=== PATIENT | female | born 1995 | race Caucasian/White ===

== ENCOUNTER 2021-04-29 16:18 | Emergency (ER) | payer OTHER ==
[~2021-04-29] VITALS: Ht 162.6 cm; Wt 48.0 kg
[2021-04-29 17:29] LABS: BASOPHILS % (AUTO) 0.4 % (0-1); EOSINOPHILS # (AUTO) 0.1 X10'3 (0-0.9); EOSINOPHILS % (AUTO) 0.9 % (0-6); HEMATOCRIT 41.1 % (35.0-45.0); HEMOGLOBIN 13.9 g/dl (12.0-16.0); LYMPHOCYTES # (AUTO) 1.3 X10'3 (1.1-4.8); LYMPHOCYTES % (AUTO) 23.1 % (21-51); MEAN CORPUSCULAR HEMOGLOBIN 31.8 PG (27.0-31.0); MEAN CORPUSCULAR HGB CONC 33.8 g/dL (33.0-36.5); MEAN CORPUSCULAR VOLUME 93.9 FL (78-98); MEAN PLATELET VOLUME 8.8 FL (7.4-10.4); MONOCYTES # (AUTO) 0.3 X10'3 (0-0.9); MONOCYTES % (AUTO) 5.3 % (2-12); NEUTROPHILS % (AUTO) 70.3 % (42-75); PLATELET COUNT 230 X10'3 (140-440); RED BLOOD COUNT 4.38 X10'6 (4.20-5.60); RED CELL DISTRIBUTION WIDTH 14.6 % (11.5-14.5); WHITE BLOOD COUNT 5.7 X10'3 (4.5-11.0)
[2021-04-29 17:40] LABS: ALANINE AMINOTRANSFERASE 24 U/L (12-78); ALBUMIN 4.1 G/DL (3.4-5.0); ALBUMIN/GLOBULIN RATIO 1.2 (1.1-1.5); ALKALINE PHOSPHATASE 39 IU/L (46-116); ANION GAP 9 (8-16); ASPARTATE AMINO TRANSFERASE 21 U/L (10-37); BILIRUBIN,TOTAL 0.5 MG/DL (0.1-1.0); BLOOD UREA NITROGEN 7 MG/DL (7-18); BUN/CREATININE RATIO 8.6 (6.6-38.0); CALCIUM 8.2 MG/DL (8.5-10.1); CHLORIDE 104 MMOL/L (99-107); CREATININE 0.81 MG/DL (0.40-0.90); GLUCOSE 85 MG/DL (70-104); POTASSIUM 3.7 MMOL/L (3.5-5.1); SODIUM 143 MMOL/L (135-145); TOTAL CARBON DIOXIDE 29.7 MMOL/L (24-32); TOTAL PROTEIN 7.6 G/DL (6.4-8.2); eGFR 85 ML/MIN
[2021-04-29 17:48] LABS: MAGNESIUM 2.1 MG/DL (1.5-2.4); PHOSPHORUS 4.3 MG/DL (2.3-4.5)
[2021-04-29 20:14] LABS: CLARITY,URINE CLOUDY (Clear); COLOR,URINE YELLOW (Yellow); GLUCOSE, URINE NEGATIVE (Neg); KETONES,URINE NEGATIVE (Neg); LEUKOCYTE ESTERASE ,URINE MODERATE (Neg); NITRITES, URINE NEGATIVE (Neg); OCCULT BLOOD,URINE LARGE (Neg); PH,URINE 6.5 (4.8-8.0); PROTEIN,URINE 30 mg/dl (Neg)
[2021-04-29 20:24] LABS: UA COLLECTION TYPE CLN CATCH MIDSTREAM
[2021-04-29 20:25] LABS: URINE AMPHETAMINE SCREEN NEGATIVE (Neg); URINE BARBITUATE SCREEN NEGATIVE (Neg); URINE BENZODIAZEPINES SCREEN NEGATIVE (Neg); URINE CANNABINOID SCREEN NEGATIVE (Neg); URINE COCAINE SCREEN NEGATIVE (Neg); URINE METHADONE SCREEN NEGATIVE (Neg); URINE OPIATE SCREEN NEGATIVE (Neg); URINE PHENCYCLIDINE SCREEN NEGATIVE (Neg)
[2021-04-29 20:26] LABS: BACTERIA,URINE 3+ /HPF (Neg); WBC,URINE TNTC /HPF (0-4)
[2021-04-29 20:27] LABS: MUCUS STRANDS FEW /LPF (Neg); SQUAMOUS EPITHELIAL CELL,UR MODERATE /LPF (FEW)
[2021-04-29] MEDS ORDERED: NITR100C6 PO (20:54)
[2021-04-29 21:17] VITALS: BP 102/65
== END 2021-04-29 21:19 | disposition home or self-care (01) ==
LOC: ER 16:19
DX: N39.0 Urinary tract infection, site not specified (principal); F50.9 Eating disorder, unspecified
CPT/HCPCS: 36415; 80053; 80305; 81001; 83735; 84100; 84439; 84443; 85025; 85651; 93005; 99284

== ENCOUNTER 2024-09-19 12:25 | Emergency (ER) | payer MEDICAID, OTHER ==
[~2024-09-19] VITALS: Ht 162.6 cm; Wt 56.0 kg
[~2024-09-19 12:25] MED LIST: NITR100C6 PO
[2024-09-19 12:41] VITALS: TEMP 98
[2024-09-19 13:11] LABS: BASOPHILS % (AUTO) 0.5 % (0-1); EOSINOPHILS # (AUTO) 0.1 X10'3 (0-0.9); EOSINOPHILS % (AUTO) 1.2 % (0-6); HEMATOCRIT 41.3 % (35.0-45.0); HEMOGLOBIN 14.2 g/dl (12.0-16.0); LYMPHOCYTES # (AUTO) 1.9 X10'3 (1.1-4.8); LYMPHOCYTES % (AUTO) 34.4 % (21-51); MEAN CORPUSCULAR HGB CONC 34.4 g/dL (33.0-36.5); MEAN CORPUSCULAR VOLUME 95.9 FL (78-98); MEAN PLATELET VOLUME 8.7 FL (7.4-10.4); MONOCYTES # (AUTO) 0.4 X10'3 (0-0.9); MONOCYTES % (AUTO) 6.6 % (2-12); NEUTROPHILS # (AUTO) 3.1 X10'3 (1.8-7.7); NEUTROPHILS % (AUTO) 57.3 % (42-75); PLATELET COUNT 232 X10'3 (140-440); RED CELL DISTRIBUTION WIDTH 13.1 % (11.5-14.5); WHITE BLOOD COUNT 5.4 X10'3 (4.5-11.0)
[2024-09-19 13:15] LABS: BILIRUBIN,URINE NEGATIVE (Neg); CLARITY,URINE CLEAR (Clear); COLOR,URINE YELLOW (Yellow); GLUCOSE, URINE NEGATIVE (Neg); KETONES,URINE NEGATIVE (Neg); LEUKOCYTE ESTERASE ,URINE MODERATE (Neg); NITRITES, URINE NEGATIVE (Neg); OCCULT BLOOD,URINE NEGATIVE (Neg); PH,URINE 6.5 (4.8-8.0); PROTEIN,URINE NEGATIVE (Neg); UROBILINOGEN,URINE 0.2 E.U/dL (0.2-1.0)
[2024-09-19 13:16] LABS: URINE HCG NEGATIVE (NEG)
[2024-09-19 13:23] LABS: UA COLLECTION TYPE CLN CATCH MIDSTREAM
[2024-09-19 13:24] LABS: ALANINE AMINOTRANSFERASE 12 U/L (12-78); ALBUMIN 4.2 G/DL (3.4-5.0); ALBUMIN/GLOBULIN RATIO 1.1 (1.1-1.5); ALKALINE PHOSPHATASE 77 IU/L (46-116); ANION GAP 6 (8-16); ASPARTATE AMINO TRANSFERASE 19 U/L (10-37); BILIRUBIN,TOTAL 0.4 MG/DL (0.1-1.0); BLOOD UREA NITROGEN 15 MG/DL (7-18); BUN/CREATININE RATIO 18.5 (10.0-20.0); CALCIUM 9.1 MG/DL (8.5-10.1); CHLORIDE 105 MMOL/L (99-107); CREATININE 0.81 MG/DL (0.40-0.90); GLUCOSE 94 MG/DL (70-104); LIPASE 73 U/L (16-77); POTASSIUM 3.9 MMOL/L (3.5-5.1); SODIUM 140 MMOL/L (135-145); TOTAL CARBON DIOXIDE 28.7 MMOL/L (24-32); TOTAL PROTEIN 7.9 G/DL (6.4-8.2); eCRCL 88 ML/MIN; eGFR 84 ML/MIN
[2024-09-19 13:29] LABS: BACTERIA,URINE FEW /HPF (Neg); RBC,URINE 0-2 /HPF (0-2); SQUAMOUS EPITHELIAL CELL,UR MODERATE /LPF (FEW)
[2024-09-19] MEDS ORDERED: NITR100C6 PO (15:31)
[2024-09-19 15:42] VITALS: BP 114/78; PULSE 68; RESP 16; O2SAT 98
== END 2024-09-19 15:44 | disposition home or self-care (01) ==
LOC: ER 12:26
DX: N39.0 Urinary tract infection, site not specified (principal); R10.2 Pelvic and perineal pain; Z79.899 Other long term (current) drug therapy
CPT/HCPCS: 36415; 76856; 80053; 81001; 81025; 83690; 85025; 87088; 93976; 99284

== ENCOUNTER 2025-06-15 18:18 | Emergency (ER) | payer MEDICAID ==
[~2025-06-15] VITALS: Ht 162.6 cm; Wt 55.9 kg
[2025-06-15 18:40] VITALS: BP 85/49; PULSE 75; RESP 20; TEMP 98.9; O2SAT 99
[2025-06-15 19:00] LABS: MEAN PLATELET VOLUME 8.6 FL (7.4-10.4); RED CELL DISTRIBUTION WIDTH 13.5 % (11.5-14.5)
[2025-06-15 19:06] LABS: LEUKOCYTE ESTERASE ,URINE NEGATIVE (Neg); NITRITES, URINE NEGATIVE (Neg); OCCULT BLOOD,URINE MODERATE (Neg)
[2025-06-15 19:13] LABS: UA COLLECTION TYPE NON-SPECIFIED; URINE HCG NEGATIVE (NEG)
[2025-06-15 19:15] LABS: MUCUS STRANDS FEW /LPF (Neg); SQUAMOUS EPITHELIAL CELL,UR MODERATE /LPF (FEW)
[2025-06-15 19:28] LABS: CREATININE 0.80 MG/DL (0.40-0.90); TOTAL CARBON DIOXIDE 25.8 MMOL/L (24-32); eCRCL 89 ML/MIN; eGFR 84 ML/MIN
--- NOTE | 2025-06-15 22:29 | RADIOLOGY REPORT ---
CLINICAL HISTORY: Abdominal pain TECHNIQUE: CT of the chest, abdomen, and pelvis was performed without IV contrast. Coronal and sagittal reformatted images were performed for better depression of the anatomy. This exam was performed according to our departmental dose optimization program. Up-to-date CT equipment and radiation dose reduction techniques are utilized as appropriate. CTDI 8.7 DLP 552 COMPARISON: None FINDINGS: CHEST: The thoracic aorta is normal in course and caliber. There are no significant atherosclerotic calcifications. The heart is normal in size. No pericardial effusion is seen. No enlarged mediastinal, hilar, or axillary lymph node is present. The central airways are patent. There is no bronchiectasis. There is no suspicious pulmonary nodule or area of consolidation. There is no pleural effusion present. ABDOMEN/PELVIS: The spleen, pancreas, adrenal glands, kidneys, gallbladder, liver, bladder, and uterus are grossly unremarkable. The abdominal aorta is normal in course and caliber. There are no significant atherosclerotic calcifications. There is no free intraperitoneal air or fluid. There is no enlarged abdominal or pelvic lymph node. There is no bowel wall thickening or dilatation. The appendix is not seen with certainty. There is no focal inflammatory process in its expected location. There is a large amount of stool in the colon. BONES: No acute osseous abnormality is evident. IMPRESSION: No acute noncontrast CT abnormality in the chest, abdomen, or pelvis. Constipation.
--- NOTE | 2025-06-15 23:01 | Physician Documentation ---
History of Present Illness ~ Chief Complaint: Urinary Symptoms Stated Complaint: ABD PAIN Time Seen by MD: 20:10 Primary Medical Doctor: Alma Villalobos HPI Patient is a 29-year-old female that presents to the emergency department for evaluation of intermittent abdominal pain times several months. Patient reports that she has had significant abdominal pain manifesting in different regions over the last month or 2. Patient reports that she was seen at [facility] approximately 2 months ago and underwent a thorough workup at that time with no obvious source of her abdominal pain. Patient reports that she has had nausea intermittent vomiting some episodes of diarrhea. Negative for fever chills at this time. Patient reports regular bowel movements some urinary discomfort with a report of malodorous urine. 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 Reports she was seen at another [facility] and seen by another provider that reported grossly elevated ketones and suggested that the patient reports to the emergency department immediately. Patient is a very concerned about this at this time and would like to be evaluated. Medication Reconciliation Allergies: Coded Allergies: No Known Allergies (Unverified , 04/29/21) Scheduled Nitrofurantoin Monohyd/M-Cryst (Macrobid 100 mg Capsule), 1 CAP PO Q12H Nitrofurantoin Monohyd/M-Cryst (Macrobid 100 mg Capsule), 1 CAP PO Q12H Review of Systems ROS As stated above in the HPI, otherwise all systems are reviewed and negative. Physical Exam Vital Signs: Temperature: 98.9, Source: Oral, Heart Rate: 75, Respiratory Rate: 20, BP: 85/49, Pulse Oximetry: 99, Weight: 55.900 Oxygen Flow Rate: 0 Physical Exam VITALS: Reviewed and as above. GENERAL: Alert, no apparent distress. HEENT: Normocephalic, atraumatic, PERRL, EOMI, dry mucosa, no erythema RESPIRATORY: Lungs clear, normal breath sounds, no respiratory distress, no tachypnea noted. CHEST: No accessory muscle use, no retractions CV: Regular rate, rhythm, no edema, no murmur, No: JVD, BP repeated with a SBP of 96 on repeate exam. Patient reports taht she normally has low BP. GI: Soft, mildly tender with palpation, bowels sounds present, no rebound, guarding, or rigidity BACK: No CVA tenderness, or swelling MUSCULOSKELETAL No deformities, no edema SKIN: Warm and dry, no rash NEURO: Oriented x4, No motor or sensory deficit PSYCH: Normal mood and affect, no agitation Progress Results/Orders Results/Orders Orders - JACOB GREEN PRINTING [employer]ATE CLERK Ct Chest Abdomen Pelvis (06/15/25 22:00) Completed Orders - JACOB GREEN [employer]ING [employer]ATE CLERK Hcg, Ur Ql (06/15/25 18:44) Cbc/Diff (06/15/25 18:44) BMP (06/15/25 18:44) Lipase (06/15/25 18:44) CMP (06/15/25 18:44) Ua W/Microscopic, Cult If Ind (06/15/25 18:53) Ct Chest Abdomen Pelvis (06/15/25 22:00) Vital Signs 06/15/25 18:40 Temp 98.9 Pulse 75 Resp 20 B/P (MAP) 85/49 Pulse Ox 99 O2 Flow Rate 0 Laboratory Tests Test 06/15/25 18:53 White Blood Count 4.4 L Red Blood Count 4.33 Hemoglobin 14.1 Hematocrit 41.7 Mean Corpuscular Volume 96.3 Mean Corpuscular Hemoglobin 32.6 H Mean Corpuscular Hemoglobin Concent 33.9 Red Cell Distribution Width 13.5 Platelet Count 192 Mean Platelet Volume 8.6 Neutrophils (%) (Auto) 69.8 Lymphocytes (%) (Auto) 20.7 L Monocytes (%) (Auto) 9.1 Eosinophils (%) (Auto) 0.1 Basophils (%) (Auto) 0.3 Neutrophils # (Auto) 3.1 Lymphocytes # (Auto) 0.9 L Monocytes # (Auto) 0.4 Eosinophils # (Auto) 0.0 Basophils # (Auto) 0.0 CBC Comment Urine Specimen Description Non-specified Urine Color Yellow Urine Clarity Slightly cloudy Urine pH 6.0 Urine Specific Adams 1.020 Urine Protein Negative Urine Glucose (UA) Negative Urine Ketones >=80 Urine Occult Blood Moderate H Urine Nitrite Negative Urine Bilirubin Small Urine Urobilinogen 0.2 Urine Leukocyte Esterase Negative Urine RBC 0-2 Urine WBC 0-4 Urine Squamous Epithelial Cells Moderate Urine Bacteria None seen Urine Mucus Few Urine Culture Indicated Not ind Volume Urine Centrifuged 10 ml Urine HCG, Qualitative Negative Urine Comment Sodium Level 138 Potassium Level 3.8 Chloride Level 102 Carbon Dioxide Level 25.8 Anion Gap 10 Blood Urea Nitrogen 13 Creatinine 0.80 Estimated GFR/1.73 m2 84 BUN/Creatinine Ratio 16.3 Glucose Level 88 Calcium Level 9.1 Total Bilirubin 0.4 Aspartate Amino Transf (AST/SGOT) 31 Alanine Aminotransferase (ALT/SGPT) 34 Alkaline Phosphatase 72 Total Protein 8.4 H Albumin 4.3 Globulin 4.1 Albumin/Globulin Ratio 1.0 L Lipase 44 Chemistry Comments Medical Decision Making Findings Patient presents with lower abdominal pain/pelvic pain. Abdominal exam without peritoneal signs. No evidence of acute abdomen at this time. Well appearing. Patient with pelvic done with no CMT, adnexal tenderness, or vaginal discharge concerning for PID or TOA. Considered ovarian torsion but doubt given history and presentation. Given work up low suspicion for acute hepatobiliary disease (including acute cholecystitis), acute pancreatitis (neg lipase), PUD and gastric perforation, acute infectious processes (pneumonia, hepatitis, pyelonephritis), acute appendicitis, vascular catastrophe, bowel obstruction or viscus perforation, diverticulitis. Presentation not consistent with other acute, emergent causes of abdominal pain at this time. CT performed and consist ent with moderate constipation at this time. Laboratory diagnostics are negative for any obious souce of infection of complication at this time. Urine revealed elevated ketones most likely associated with dehydration or unintentional starvation due to patient being nauseated over the last several days to weeks. 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 Patient reposts that she practices a restricted diet. Discussed with patient the need to increase her fluids possibly introduced MiraLax into her daily regimen over the next couple of weeks until she regulates her bowel movements. Increase her fluids and food and glucose consumption as tolerated making sure to eat a balanced diet. Discussed this patient at length with Dr. Grace. Dr. Grace graciously reviewed patients notes and labs and came to the same conclusion as above listed. Patient will follow up with her primary care provider. Patient will return to the emergency department with any worsening or recurrent symptoms or any additional concerning symptoms that we discussed here today i.e. increased abdominal pain chills fevers,SOB, nausea vomiting no passing of gas no bowel movements increased constipation blood in her urine or bowel or any other concerning symptoms. 06/16/2025: Follow up phone call made at [phone]. Left a message inquiring about patient's condition and asked her to give me a call back if she was not feeling better to discuss next steps if she is interested. Also left a message regarding ketosis in lactating women and additional dietary needs. 06/16/2025: Second phone call attempted at 1999. No answer. Did not leave a message. Urinary Diff Dx:Considerations: Include: AAA, , Aortic dissection, Appendicitis, Bowel obstruction, Cholelithiasis, Choleangitis, DJD, Ectopic , Hepatitis, HNP, Impaction, Intrauterine , Musculoskeletal pain, Ovarian torsion, Pancreatitis, PID, Post-Op complication, Pyelonephritis, Renal failure, Strain, Urinary Obstruction, Urolithiasis, Urinary retention, UTI, Vaginitis, Other Genital Diff Dx:Considerations: Include: -Complete, - Incomplete, -Inevitable, Ablortion-Missed, -Threatened, Abruptio placentae, Bartholin abscess, Bartholin cyst, Blood loss anemia, Constipation, Cervicitis, Dsymenorrhea, Ectopic , Foreign body, Hormonal, Hidradenitis suppurativa, Intrauterine , Menorrhagia, Menometrorrhagia, Menstrual bleeding, Myomatous uterus, Perianal abscess, Physiologic discharge, Pinworms, PID, Placenta previa, , Precipitous Hct, Trauma, UTI, Vaginitis(osis)-Atrophic, Vaginitis, Vaginitis(osis)-Bacterial, Vaginitis(osis)- Candidal, Vaginitis(osis)-Contact, Vaginitis(osis)-Herpes, Vaginitis(osis)- Trich., Other Departure Disposition: 01 HOME / SELF CARE / HOMELESS Impression: Primary Impression: Abdominal pain Additional Impressions: Constipation Nausea Abdominal tenderness Discharge Instructions: Abdominal Pain, Adult, [id number] Additional Instructions: Patient presents with lower abdominal pain/pelvic pain. Abdominal exam without peritoneal signs. No evidence of acute abdomen at this time. Well appearing. Patient with pelvic done with no CMT, adnexal tenderness, or vaginal discharge concerning for PID or TOA. Considered ovarian torsion but doubt given history and presentation. Given work up low suspicion for acute hepatobiliary disease (including acute cholecystitis), acute pancreatitis (neg lipase), PUD and gastric perforation, acute infectious processes (pneumonia, hepatitis, pyelonephritis), acute appendicitis, vascular catastrophe, bowel obstruction or viscus perforation, diverticulitis. Presentation not consistent with other acute, emergent causes of abdominal pain at this time. CT performed and consistent with moderate constipation at this time. Laboratory diagnostics are negative for any via source at this time. Urine revealed elevated ketones most likely associated with dehydration or unintentional starvation due to patient being nauseated over the last several days. Discussed with patient the need to increase her fluids possibly introduced MiraLax into her daily regimen over the next couple of weeks until she regulates her bowel movements. Increase her Fluids, food, and glucose consumption as tolerated making sure to eat a balanced diet. Patient will follow up with her primary care provider. Patient will return to the emergency department with any worsening or recurrent symptoms or any additional concerning symptoms that we discussed here today i.e. increased abdominal pain chills fevers nausea vomiting no passing of gas no bowel movements increased constipation blood in her urine or bowel or any other concerning symptoms. Referrals: NO PRIMARY CARE PROVIDER (PCP) Education Educated: Patient Educated regarding: diagnosis, treatment, need for follow up Signature Scribe Signature: A Attestation: Scribed for Jacob Green by MALISSA Marshall . 06/15/25 23:03 JACOB GREEN Jun 15, 2025 23:01
== END 2025-06-15 23:13 | disposition home or self-care (01) ==
LOC: ER 18:19
DX: K59.00 Constipation, unspecified (principal)
CPT/HCPCS: 36415; 71250; 74176; 80053; 81001; 81025; 83690; 85025; 99284